=== PATIENT | female | born 1985 | race Caucasian/White ===

== ENCOUNTER 2018-11-30 02:43 | Inpatient (IN) | payer BC ==
--- NOTE | 2018-11-30 03:28 | ED ---
Psychiatric Complaint - HPI Summary HPI Summary: This patient is a 33 year old female brought in by ambulance to [facility] with a chief complaint of MHE and overdose since yesterday. Patient is a transfer from [place], from which she overdosed on Lyrica last night in a suicide attempt. Patient is currently in a lot of stress due to losing her kids by Child Protective Services and getting in an argument with her significant other. Patient was transferred to [facility] for a MHU hold and eventual MHE. Patient is stuporous, but responds to tactile stimuli. HPI Limited due to Level 5 Caveat - History Of Current Complaint Hx Obtained From: EMS, Medical Records Hx From Patient Unobtainable Due To: Altered Mental Status Onset/Duration: Lasting Days, Still Present Timing: Constant Severity Currently: Moderate Character: Stuporous Aggravating Factor(s): Nothing Alleviating Factor(s): Nothing Related History: Positive For: Prior Psychiatric Issues Has Suicidal: Reports: Thoughts, Demonstrates Gesture - Allergies/Home Medications Allergies/Adverse Reactions: Allergies Allergy/AdvReac Type Severity Reaction Status Date / Time nitrofurantoin Allergy Hives Verified 11/30/18 03:43 peanut oil Allergy Anaphylatic Verified 11/30/18 03:42 Shock Home Medications: Home Medications Albuterol HFA INHALER* [Ventolin HFA Inhaler*] 2 puff INH Q6H PRN 11/30/18 [ History Confirmed 11/30/18] NIFEdipine [Nifedipine ER] 30 mg PO DAILY 11/30/18 [History Confirmed 11/30/18] Pantoprazole Sodium 40 mg PO DAILY 11/30/18 [History Confirmed 11/30/18] Pregabalin [Lyrica] 200 mg PO BID 11/30/18 [History Confirmed 11/30/18] Sertraline HCl [Zoloft] 50 mg PO DAILY 11/30/18 [History Confirmed 11/30/18] PMH/Surg Hx/FS Hx/Imm Hx Previously Healthy: Yes - PMHx limited due to Level 5 Caveat Opthamlomology History: Denies: Hx Legally Blind EENT History: Denies: Hx Deafness - Family History Known Family History: Negative: Hypertension Review of Systems Negative: Fever Positive: Depressed, Other - SI All Other Systems Reviewed And Are Negative: No - Comments Additional Review of Systems Comments: ROS Limited due to Level 5 Caveat Physical Exam - Summary Physical Exam Summary: Appearance: Appears intoxicated, stuporous Skin: Warm, dry, no obvious rash Eyes: sclera anicteric, no conjunctival pallor ENT: mucous membranes moist Neck: deferred Respiratory: No signs of respiratory distress Cardiovascular: Appears well perfused, pulses are nml Abdomen: deferred Musculoskeletal: Moving all 4 extremities without obvious discomfort Triage Information Reviewed: Yes Vital Signs Reviewed: Yes Completion Of Physical Exam Limited Due To: Altered Mental Status, Level 5 Course/Dx - Course Course Of Treatment: This patient is a 33 year old female brought in by ambulance to [facility] with a chief complaint of MHE and overdose since yesterday. Patient is a transfer from [place], from which she overdosed on Lyrica last night in a suicide attempt. Patient is currently in a lot of stress due to losing her kids by Child Protective Services and getting in an argument with her significant other. Patient was transferred to [facility] for a MHU hold and eventual MHE. Patient is stuporous, but responds to tactile stimuli. Patient will be signed out to Dr. Villareal at the end of shift, pending MHE. - Differential Dx/Clinical Impression Provider Diagnosis: Suicide attempt, Alcohol intoxication Discharge - Sign-Out/Discharge Documenting (check all that apply): Sign-Out Patient Signing out patient TO: Dana Villareal Patient Received Moderate/Deep Sedation with Procedure: No - Discharge Plan Condition: Stable Referrals: David Garza, [facility] [facility] [Primary Care Provider] - - Billing Disposition and Condition Condition: STABLE - Attestation Statements Document Initiated by Scribe: Yes Documenting Scribe: Ciaran Nation Provider For Whom Anna is Documenting (Include Credential): Marcos Hernandez MD Scribmiguel Attestation: Ciaran Boggs, screveliaed for Marcos Hernandez MD on 11/30/18 at 0635. Scribe Documentation Reviewed: Yes Provider Attestation: The documentation as recorded by the Ciaran devine accurately reflects the service I personally performed and the decisions made by , Marcos Hernandez MD Status of Scribe Document: Viewed
--- NOTE | 2018-11-30 07:28 | ED ---
Progress - Progress Note Progress Note: Receiving sign-out from Dr. Hernandez at shift change 0700 pending MHE at 0700 . This patient is a 33 year old female with a chief complaint of drug overdose, brought in [facility]. She overdosed on Lyrica. She will be diagnosed with depression and will be admitted, per Dr. Valverde, psychiatrist community relations advisor. She will have 15 minute checks once she is on [facility] as it is a locked unit and a safe room. 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 Patient denies chest pain and SOB. Patient complains of nasal congestion and fevers. Vital signs are BP 107/47 and Pulse 87 BPM. Pt is also on Zoloft (she states 50mg x2) med rec shows 50mg qd, also Nifedipine ER 30mg daily for Raynaud's syndrome. She normally takes Lyrica 200mg bid for generalized pain. Pt will be given saline nasal spray for her sinus sxs, and her zoloft and her Nifedipine ER while in the ED. Fam hx: Ira's disease in her mother Albuterol HFA INHALER* [Ventolin HFA Inhaler*] 2 puff INH Q6H PRN 11/30/18 [ History Confirmed 11/30/18] NIFEdipine [Nifedipine ER] 30 mg PO DAILY 11/30/18 [History Confirmed 11/30/18] Pantoprazole Sodium 40 mg PO DAILY 11/30/18 [History Confirmed 11/30/18] Pregabalin [Lyrica] 200 mg PO BID 11/30/18 [History Confirmed 11/30/18] Sertraline HCl [Zoloft] 100 mg PO DAILY 11/30/18 [History Confirmed 11/30/18] Physical Exam Appearance: well-appearing, moderate pain distress, well-nourished, nasal congestion Skin: Warm, color reflects adequate perfusion, dry Head: Normal Head/Face inspection, atraumatic Eyes: Conjunctiva clear ENT: Normal inspection Neck: Supple, no nodes, no JVD Respiratory: Lungs clear, normal breath sounds, no respiratory distress Cardio: RRR, No murmur, pulses normal, brisk capillary refill Abdomen: Soft, nontender Bowel sounds: Present Musculoskeletal: Strength Intact/ROM intact, no calf tenderness, no edema. Psychological: calm, cooperative, flat affect Neuro: Alert, muscle tone normal, no focal deficit, no tremors or choreiform movements. Course/Dx - Course Course Of Treatment: Receiving sign-out from Dr. Hernandez at shift change 0700 pending MHE 11/30/18. This patient is a 33 year old female with a chief complaint of drug overdose. She overdosed on Lyrica. She will be diagnosed with depression and will be admitted, involuntary, per Dr. Valverde. Patient was administered 30 mg PO Nifedipine ER, 50 mg PO Zoloft, 2 drops both nares NaCl. Pt remained calm and cooperative while in the ED. - Diagnoses Provider Diagnoses: Suicide attempt, Alcohol intoxication, Medication overdose - Provider Notifications Discussed Care Of Patient With: Aurora Valverde - royce Arce, RN 0730 Instructed by Provider To: Admit As Inpatient Discharge - Sign-Out/Discharge Documenting (check all that apply): Patient Departure - Admission, Receiving Sign-Out Receiving patient FROM: Marcos Hernandez - 0700 11/30/18 Patient Received Moderate/Deep Sedation with Procedure: No - Discharge Plan Condition: Stable Disposition: ADMITTED TO [facility] - Billing Disposition and Condition Condition: STABLE Disposition: Admitted to [facility] - Attestation Statements Document Initiated by Anna: Yes Documenting Scribe: Luis Burnham Provider For Whom Anna is Documenting (Include Credential): Dana Villareal MD Scribe Attestation: Luis Boggs scribed for Dana Villareal MD on 11/30/18 at 1129. Scribe Documentation Reviewed: Yes Provider Attestation: The documentation as recorded by the Luis devien accurately reflects the service I personally performed and the decisions made by , Dana Villareal MD Status of Scribe Document: Viewed
[2018-11-30] MEDS ORDERED: NIFEdipine ER TAB* 30 MG PO ONE (08:06)
[2018-11-30] MEDS ORDERED: Saline NASAL DROPS 0.65%* 1 DROP BTL BOTH NARES ONE (08:07)
[2018-11-30] MEDS ORDERED: Sertraline* 50 MG TAB PO ONE (08:09)
[2018-11-30] MEDS ORDERED: Al Hydrox/Mg Hydrox/Simet LIQ* 30 ML UDC PO PRN (12:24)
[2018-11-30] MEDS ORDERED: Calcium Carbonate CHEW TAB* 500 MG (TUMS) PO PRN (14:06)
[2018-11-30] MEDS ORDERED: Nicotine GUM* (FRUIT FLAVOR) 2 MG GUM PO PRN (14:07)
--- NOTE | 2018-11-30 16:13 | HP ---
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 Emergency Room via ambulance from [facility] following an intentional overdose on her prescription medications. CHIEF COMPLAINT: "People around me are going to be better off without me." HISTORY OF PRESENT ILLNESS: Fazal with no prior history of psychiatric illness , has been going through overwhelming psychological situation related to involvement with the CPS. Approximately a month ago, her 9-year-old son reported that he was held down and beaten up by his mother. That 9-year-old son happens to be an autistic child. The child's counselor reported her to the CPS and CPS got involved yesterday. CPS showed up in her house and took away her children because Fazal once again relapsed on her alcohol and then on top of it, they found the reporting was credible. Fazal could not take the loss of her children and she became severely depressed, overwhelmed and wanted to kill herself. She took the overdose, drank few beers and then told her what did she do. She was taken to the [place] [facility] and from there she was transferred here for further evaluation and treatment. On today's evaluation, she denies any ongoing symptoms reminiscent of depression for more than couple of days. Obviously, she feels sad, overwhelmed, cries, but denies any other symptoms of depression. At this time, she denies any suicidal ideation and reports that she is happy that she did not end up dying. She also understands that she has problems especially drinking problem and has been struggling with her alcoholism since her late teenage years. 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 She has a very supportive . PAST PSYCHIATRIC HISTORY: Unremarkable. SUBSTANCE USE HISTORY: Fazal started drinking when she was 17 years old. Her drinking got worse in her early 20s. She could not give any amount that she was drinking at the [place]; however, she got involved many times in DUI, DWI and going to [facility]. She went through multiple outpatient and inpatient drug and alcohol rehabs with failures, but she maintained sobriety for approximately 7 years before she relapsed this time. 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 She also has Raynaud disease and peptic ulcer disease. ALLERGIES: She is allergic to MACRODANTIN, which causes a severe GI bleed. FAMILY PSYCHIATRIC HISTORY: Fazal is one of 10 full and half-siblings from her mother's side and the father's side. She reports 1 sister who has bipolar disorder. Majority of them has history of alcohol or drug use. Her biological father was an alcoholic. PERSONAL AND SOCIAL HISTORY: For some unknown reason, Fazal was mostly raised by her grandparents, who are now . Her mother was not a good computer network support specialist , which led Fazal to go to work when she was only 14 years old. 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 She has been unemployed for last 1 year only. Fazal has been for more than 10 years now. She has 3 children from this union. She reports that her is very supportive. PHYSICAL EXAMINATION GENERAL: Fazal is a tall, healthy-looking female, who is appropriately dressed and neatly groomed. She does not appear to be in any physical distress at this time. VITAL SIGNS: Her vitals are within normal limits. HEENT: Head: Atraumatic, normocephalic with full hair. Eyes: PERRLA. EOMI x2. Oral cavity: Within normal limits. NECK: Supple. Midline trachea. No adenopathy or thyromegaly. CHEST: Equal air entry bilaterally. No wheezing or crackles. CVS: S1 and S2. No murmurs. No gallops. Heart rate regular. ABDOMEN: Flat and soft. No organomegaly. No tenderness. Bowel sounds positive in all quadrants. MUSCULOSKELETAL: Within normal limits. Full range of movements of joints. Positive pulses in all extremities. NEUROLOGICAL: Cranial nerves II through XII grossly intact. No evidence of sensory deficit. No abnormal movements at the time of examination. Her gait is mostly stable, but she reports that sometimes she feels unsteady. MENTAL STATUS EXAMINATION: Neatly dressed and groomed, tall female, who is alert and oriented to time, place, and person. She makes good eye contact. Speech is normal in all spheres. Describes her mood as sad. Observed affect is dysphoric with tearfulness. There was no evidence of any thought, perceptual or psychomotor disturbances. Her intelligence appears to be average as evidenced by her vocabulary and fund of knowledge. Memory functions are intact in all spheres. Insight and judgment appear to be intact. SUMMARY: This 33-year-old female who has Neely disease and long history of alcohol dependence, who attempted suicide by overdosing on her prescription medications and alcohol. This is her first lifetime psychiatric hospitalization and she does not have any outpatient services in the community either. DIAGNOSTIC IMPRESSION: MENTAL HEALTH DIAGNOSES: 1. Acute stress disorder with depressed mood. 2. Alcohol use disorder. PHYSICAL HEALTH DIAGNOSES: 1. Neely disease. 2. Peptic ulcer disease. TREATMENT RECOMMENDATIONS: Fazal will need a very brief psychiatric hospitalization for her safety and resolution to her psychosocial stressors. Her code status will remain full. While on the unit, supportive milieu, individual, and group therapy will be initiated. I do not see any reason for starting her on any medication at this time and we will defer that decision to her assigned psychiatrist. Otherwise, we will continue her on her outpatient medical medications. [id number]/[facility] #: [id number] AGUEDA
[2018-11-30] MEDS: Nicotine PATCH 21 MG/24 HR* PATCH TRANSDERM SCH (16:44)
[2018-11-30] MEDS: Pantoprazole TAB * 40 MG TAB PO SCH (16:44)
[2018-11-30] MEDS: Acetaminophen TAB* 325 MG PO PRN (20:24)
[2018-12-01] MEDS: Pantoprazole TAB * 40 MG TAB PO SCH (09:13)
[2018-12-01] MEDS: Nicotine PATCH 21 MG/24 HR* PATCH TRANSDERM SCH (09:13)
[2018-12-01] MEDS: Vitamin THERAPEUTIC TAB PO SCH (09:13)
[2018-12-01] MEDS: Sertraline* 100 MG TAB PO SCH (15:56)
[2018-12-01] MEDS: Acetaminophen TAB* 325 MG PO PRN (15:56)
[2018-12-01] MEDS: NIFEdipine ER TAB* 30 MG PO SCH (18:09)
[2018-12-02 06:44] LABS: ABS Eosinophils 0.2 10^3/ul (0-0.6); ABS Lymphocytes 1.6 10^3/ul (1.0-4.8); ABS Monocytes 1.2 10^3/ul (0-0.8); ABS Neutrophils 6.6 10^3/ul (1.5-7.7); Eosinophil % 2.3 %; Hematocrit 39 % (35-47); Hemoglobin 13.2 g/dL (12.0-16.0); Lymphocyte % 16.7 %; Mean Corpuscular HGB Conc 34 g/dL (31-36); Mean Corpuscular Hemoglobin 31 pg (27-31); Mean Corpuscular Volume 93 fL (80-97); Mean Platelet Volume 8.7 fL (7.4-10.4); Platelet Count 296 10^3/uL (150-450); Red Blood Count 4.25 10^6 /uL (3.70-4.87); Red Cell Distribution Width 13 % (10.5-15); White Blood Count 9.6 10^3/uL (3.5-10.8)
[2018-12-02 07:05] LABS: ALT 15 U/L (7-52); AST 19 U/L (13-39); Albumin 3.9 g/dL (3.2-5.2); Albumin/Globulin Ratio 1.5 (1-3); Alkaline Phosphatase 40 U/L (34-104); Anion Gap 6 mmol/L (2-11); BUN/Creatinine Ratio 8.5 (8-20); Blood Urea Nitrogen 6 mg/dL (6-24); CO2 Carbon Dioxide 25 mmol/L (22-32); Calcium 8.9 mg/dL (8.6-10.3); Chloride 109 mmol/L (101-111); Cholesterol 156 mg/dL; EGFR African American 116.2 (>60); Globulin 2.6 g/dL (2-4); Glucose 89 mg/dL (70-100); HDL Cholesterol 56.7 mg/dL; LDL Cholesterol 83 mg/dL; Potassium 3.7 mmol/L (3.5-5.0); Sodium 140 mmol/L (135-145); Total Protein 6.5 g/dL (6.4-8.9); Triglycerides 83 mg/dL
[2018-12-02 07:19] LABS: TSH (Thyroid Stimulating Horm) 1.05 mcIU/mL (0.34-5.60)
[2018-12-02] MEDS: NIFEdipine ER TAB* 30 MG PO SCH (08:32)
[2018-12-02] MEDS: Pantoprazole TAB * 40 MG TAB PO SCH (08:32)
[2018-12-02] MEDS: Sertraline* 100 MG TAB PO SCH (08:32)
[2018-12-02] MEDS: Nicotine PATCH 21 MG/24 HR* PATCH TRANSDERM SCH (08:34)
[2018-12-02] MEDS: Vitamin THERAPEUTIC TAB PO SCH (08:36)
--- NOTE | 2018-12-02 10:01 | PN ---
Subjective - Subjective Date of Service: 12/02/18 Service Type: 55678 Hosp care 25 min moderate complexity Subjective: Patient reports much frustration with CPS and minimizes any neglect or abuse of her children. She minimizes recent alcohol use and states that she has been going to [facility] since the week after . She states she has an upcoming appt this sunday. She reports desire to be connected to outpatient therapy and psychiatry. She agrees to oral naltrexone to assess for use of Vivitrol. Will trial gabapentin for anxiety, insomnia and alcohol cravings. She reports R ear pain. external ear exam reveals no abnormalities. external ear canals patent, bilat; erythema noted in R ear. TM intact, bilat. Objective - General Observations Appearance: Well Groomed Stature: Thin Posture: WNL Eye Contact: Avoidant, Intermittent Behavior/Activity: WNL - Interaction Observations Attitude Towards Examiner: Cooperative, Anxious Stated Mood: Dysphoric, Irritable Affect: Flat Speech Pattern/Tone: Clear, Appropriate, Normal Volume Thought Process: Circumstantial Perception: WNL Thought Content: WNL Hallucination Type: None Delusion Type: None - Cognitive Function Orientation: A&O x 4 Level of Consciousness: Alert Cognition: WNL Insight: Mostly Blames Others for Problems Judgment Within Normal Limits: No Ability to Make Reasonable Decisions: Moderately Impaired - Medication Compliance Cooperative with Inpatient Medication Regimen: Yes - Group Participation Participates in Group Activities: Yes Assessment - Assessment Merits Inpatient Hospitalization: For Immediate Safety, For Stabilization Inpatient DSM-V Dx: F33.2 Clinical Impression: 33yo wf with hx of Loving dz, Reynaud's dz, and alcohol dependence who presented to ED after suicide attempt via overdosing on prescribed Lyrica and alcohol. CPS has been involved with the family and removed the children due to patient's alcohol use. She exhibits impaired insight into the above. She merits hospitalization for immediate safety and stabilization. Plan - Plan Treatment Plan: Name: BETTYE BERNAL Birthdate: 1985 [id number] continue acute intensive psychiatric treatment. may decrease to q30min and allow staff pass/computer use. start naltrexone PO for alcohol use d/o; start gabapentin 300mg TID prn pain/ anxiety/insomnia. discharge planning to include family, mental health and substance use outpatient referrals Continued Medication Management: Start Medication Medications: Current Medications Acetaminophen (Tylenol Tab*) 650 mg PO Q4H PRN PRN Reason: PAIN or TEMP > 101 F Last Admin: 12/01/18 15:56 Dose: 650 mg Al Hydrox/Mg Hydrox/Simethicone (Maalox Plus*) 30 ml PO Q4H PRN PRN Reason: INDIGESTION Calcium Carbonate (Tums*) 500 mg PO TID PRN PRN Reason: INDIGESTION Multivitamins (Theragran Tab*) 1 tab PO DAILY [facility] Last Admin: 12/02/18 08:36 Dose: Not Given Nicotine (Nicotine Patch 21 Mg/24 Hr*) 1 patch TRANSDERM DAILY [facility] Last Admin: 12/02/18 08:34 Dose: 1 patch Nicotine Polacrilex (Nicotine Gum*) 2 mg PO Q2H PRN PRN Reason: NICOTINE CRAVINGS Nifedipine (Procardia Xl Tab*) 30 mg PO DAILY [facility] Last Admin: 12/02/18 08:32 Dose: 30 mg Pantoprazole Sodium (Protonix Tab*) 40 mg PO DAILY [facility] Last Admin: 12/02/18 08:32 Dose: 40 mg Sertraline HCl (Zoloft*) 100 mg PO DAILY [facility] Last Admin: 12/02/18 08:32 Dose: 100 mg - Discharge Plan Discharge Plan: Inpatient Hospitalization
[2018-12-02 13:33] LABS: HCG Pregnancy < 0.60 mIU/mL
[2018-12-02] MEDS ORDERED: Acetic Acid 0.25%* 250 ML BTL TOPICAL SCH (14:00)
[2018-12-02] MEDS: Naltrexone TAB* 50 MG TAB PO SCH (14:10)
[2018-12-02 17:16] LABS: Urine Appearance Clear; Urine Bilirubin Negative (Negative); Urine Blood Negative (Negative); Urine Color Yellow; Urine Glucose Negative (Negative); Urine Ketones Trace (Negative); Urine Nitrite Negative (Negative); Urine Protein Negative (Negative); Urine Specific Gravity 1.013 (1.010-1.030); Urine Urobilinogen Negative (Negative)
[2018-12-02 17:58] LABS: Urine Benzodiazepine Screen None Detected (None Detect); Urine Opiates Screen None Detected (None Detect)
[2018-12-02] MEDS: Gabapentin CAP(*) 300 MG PO PRN (20:26)
[2018-12-02] MEDS: Acetaminophen TAB* 325 MG PO PRN (20:27)
[2018-12-03] MEDS: Pantoprazole TAB * 40 MG TAB PO SCH (07:53)
[2018-12-03] MEDS: NIFEdipine ER TAB* 30 MG PO SCH (07:53)
[2018-12-03] MEDS: Gabapentin CAP(*) 300 MG PO PRN ×2 (07:53→20:56)
[2018-12-03] MEDS: Sertraline* 100 MG TAB PO SCH (07:53)
[2018-12-03] MEDS: Naltrexone TAB* 50 MG TAB PO SCH (07:53)
[2018-12-03] MEDS: Vitamin THERAPEUTIC TAB PO SCH (07:54)
[2018-12-03] MEDS: Nicotine PATCH 21 MG/24 HR* PATCH TRANSDERM SCH (07:56)
[2018-12-03] MEDS ORDERED: Saline NASAL SPRAY 0.65%* BTL BOTH NARES PRN (12:11)
--- NOTE | 2018-12-03 12:19 | PN ---
Subjective - Subjective Date of Service: 12/03/18 Service Type: 65147 Hosp care 15 min low complexity Subjective: Patient reports feelings of isolation and poor support network. She exhibits defense mechanisms of externalizing blame in regards to relationship with and CPS involvement. Patient identifies lack of "dealing with" history of trauma and losses. She is receptive to suggestions of completing GERDA packet and considering substance use inpatient treatment. She reports a desire "to do anything" in regards to custody of children. She endorses poor sleep and "memories" but denies nightmares or flashbacks. She declines offer of prazosin. Objective - General Observations Appearance: Well Groomed Stature: Thin Posture: WNL Eye Contact: Intermittent Behavior/Activity: WNL - Interaction Observations Attitude Towards Examiner: Cooperative, Defensive Stated Mood: Dysphoric Affect: Flat Speech Pattern/Tone: Clear, Quiet Volume Thought Process: Circumstantial Perception: WNL Thought Content: Depressive Hallucination Type: None, Denies Delusion Type: None, Denies - Cognitive Function Orientation: A&O x 4 Level of Consciousness: Alert Cognition: WNL Estimated Intelligence: Normal Insight: Mostly Blames Others for Problems Judgment Within Normal Limits: No Ability to Make Reasonable Decisions: Serverely Impaired - Medication Compliance Cooperative with Inpatient Medication Regimen: Yes - Group Participation Participates in Group Activities: Yes Assessment - Assessment Merits Inpatient Hospitalization: For Immediate Safety, For Stabilization, For Discharge Planning, Pending Safe DC Plan Inpatient DSM-V Dx: F33.2 Clinical Impression: 33yo wf with hx of Yell dz, Reynaud's dz, and alcohol dependence who presented to ED after suicide attempt via overdosing on prescribed Lyrica and alcohol. CPS has been involved with the family and removed the children due to patient's alcohol use. She exhibits impaired insight into the above. She merits hospitalization for immediate safety and stabilization. Plan - Plan Treatment Plan: Name: BETTYE BERNAL Birthdate: 1985 [id number] continue acute intensive psychiatric treatment. may decrease to q30min and allow staff pass/computer use. continue current medications. discharge planning to include family, mental health and substance use outpatient referrals Medications: Current Medications Acetaminophen (Tylenol Tab*) 650 mg PO Q4H PRN PRN Reason: PAIN or TEMP > 101 F Last Admin: 12/02/18 20:27 Dose: 650 mg Al Hydrox/Mg Hydrox/Simethicone (Maalox Plus*) 30 ml PO Q4H PRN PRN Reason: INDIGESTION Calcium Carbonate (Tums*) 500 mg PO TID PRN PRN Reason: INDIGESTION Gabapentin (Neurontin Cap(*)) 300 mg PO TID PRN PRN Reason: anxiety/pain/insomnia Last Admin: 12/03/18 07:53 Dose: 300 mg Multivitamins (Theragran Tab*) 1 tab PO DAILY [facility] Last Admin: 12/03/18 07:54 Dose: Not Given Naltrexone HCl (Naltrexone Tab*) 50 mg PO DAILY [facility]; Protocol Last Admin: 12/03/18 07:53 Dose: 50 mg Nicotine (Nicotine Patch 21 Mg/24 Hr*) 1 patch TRANSDERM DAILY [facility] Last Admin: 12/03/18 07:56 Dose: 1 patch Nicotine Polacrilex (Nicotine Gum*) 2 mg PO Q2H PRN PRN Reason: NICOTINE CRAVINGS Last Admin: 12/02/18 14:18 Dose: 2 mg Nifedipine (Procardia Xl Tab*) 30 mg PO DAILY [facility] Last Admin: 12/03/18 07:53 Dose: 30 mg Pantoprazole Sodium (Protonix Tab*) 40 mg PO DAILY [facility] Last Admin: 12/03/18 07:53 Dose: 40 mg Sertraline HCl (Zoloft*) 100 mg PO DAILY [facility] Last Admin: 12/03/18 07:53 Dose: 100 mg Sodium Chloride (Sodium Chloride 0.65% Nasal [place]*) 1 spray BOTH NARES Q4H PRN PRN Reason: CONGESTION - Discharge Plan Discharge Plan: Inpatient Hospitalization
[2018-12-03] MEDS: Acetaminophen TAB* 325 MG PO PRN (20:56)
[2018-12-04 08:54] VITALS: BP 105/63
[2018-12-04] MEDS: Nicotine PATCH 21 MG/24 HR* PATCH TRANSDERM SCH (08:54)
[2018-12-04] MEDS: Pantoprazole TAB * 40 MG TAB PO SCH (08:55)
[2018-12-04] MEDS: Naltrexone TAB* 50 MG TAB PO SCH (08:55)
[2018-12-04] MEDS: NIFEdipine ER TAB* 30 MG PO SCH (08:55)
[2018-12-04] MEDS: Sertraline* 100 MG TAB PO SCH (08:55)
[2018-12-04] MEDS: Acetaminophen TAB* 325 MG PO PRN (08:57)
[2018-12-04] MEDS: Vitamin THERAPEUTIC TAB PO SCH (09:00)
[2018-12-04] MEDS ORDERED: Naltrexone INJ 380 MG IM ONE (11:13)
--- NOTE | 2018-12-04 11:21 | DCNOTE ---
Subjective - Subjective Service Types: [id number] Hosp DC Day Mgmt simple under 30 min Discharge Date: 12/04/18 Subjective: Patient reports desire to be discharged and follow up with scheduled appt today at [facility]. She denies SI or passive wish. She is future-oriented and expresses desire to work with CPS. She continues to decline offer of referral for inpatient substance use treatment. She received first monthly injection of naltrexone IM 380mg today. Objective - General Observations Appearance: Well Groomed Stature: Thin Posture: WNL Eye Contact: Average Behavior/Activity: WNL - Interaction Observations Attitude Towards Examiner: Cooperative Stated Mood: Euthymic Affect: Full Speech Pattern/Tone: Clear, Appropriate, Normal Volume Thought Process: Coherent, Goal Directed Perception: WNL Thought Content: WNL Hallucination Type: None Delusion Type: None - Cognitive Function Orientation: A&O x 4 Level of Consciousness: Alert Cognition: WNL Estimated Intelligence: Normal Insight: Mostly Blames Others for Problems Judgment Within Normal Limits: Yes - Medication Compliance Cooperative with Inpatient Medication Regimen: Yes - Group Participation Participates in Group Activities: Yes DC Assessment - Assessment Clinical Impression: 33yo wf with hx of [place] dz, Reynaud's dz, and alcohol dependence who presented to ED after suicide attempt via overdosing on prescribed Lyrica and alcohol. CPS has been involved with the family and removed the children due to patient's alcohol use. She has successfully detoxed and denies suicidal ideation or passive wish. She has been stabilized and no longer meets requirement for psychiatric hospitalization. Clear for Discharge: Adequate Clinical Respons, Acceptable Safety Profile Inpatient DSM-V Dx: F33.2 Discharge Planning - Discharge Planning Discharge Plan: Outpatient Follow Up Outpatient Program: [facility] Recommendations for Continuing Care: Medication Management, Psychotherapy, Substance Abuse Counseling, Primary Care Followup Medications: Current Medications Calcium Carbonate (Tums*) 500 mg PO TID PRN PRN Reason: INDIGESTION Gabapentin (Neurontin Cap(*)) 300 mg PO TID PRN PRN Reason: anxiety/pain/insomnia Last Admin: 12/03/18 20:56 Dose: 300 mg Naltrexone HCl (Vivitrol Inj) 380 mg IM ONCE ONE Stop: 12/04/18 11:14 Nifedipine (Procardia Xl Tab*) 30 mg PO DAILY [facility] Last Admin: 12/04/18 08:55 Dose: 30 mg Pantoprazole Sodium (Protonix Tab*) 40 mg PO DAILY [facility] Last Admin: 12/04/18 08:55 Dose: 40 mg Sertraline HCl (Zoloft*) 100 mg PO DAILY [facility] Last Admin: 12/04/18 08:55 Dose: 100 mg Sodium Chloride (Sodium Chloride 0.65% Nasal [place]*) 1 spray BOTH NARES Q4H PRN PRN Reason: CONGESTION Last Admin: 12/04/18 08:56 Dose: 1 spray Discharge Planning: Prescriptions provided for discharge [x] Yes [] No Follow up care details as per social work arrangements: NILO- encouraged to discuss inpatient programming Jesus Hawkins MH - intake 12/05/18 primary care- David Garza NP Patient response to discharge plan: [x] eager for discharge [x] agreeable with discharge plan [] ambivalent about discharge [] disagrees with discharge today
[2018-12-04] MEDS: Gabapentin CAP(*) 300 MG PO PRN (12:01)
== END 2018-12-04 12:30 | disposition home or self-care (01) | DRG 751 ==
LOC: ED 02:43 → BSU 09:19
PROVIDERS: ADMIT Psychiatry & Neurology Psychiatry; ATTEND Psychiatry & Neurology Psychiatry
DX: F33.2 Major depressive disorder, recurrent severe without psychotic features (principal); G10 Huntington's disease; T42.6X2A Poisoning by other antiepileptic and sedative-hypnotic drugs, intentional self-harm, initial encounter; F10.20 Alcohol dependence, uncomplicated; I73.00 Raynaud's syndrome without gangrene; K27.9 Peptic ulcer, site unspecified, unspecified as acute or chronic, without hemorrhage or perforation; Y92.9 Unspecified place or not applicable; Z88.8 Allergy status to other drugs, medicaments and biological substances; Z81.8 Family history of other mental and behavioral disorders; Z81.1 Family history of alcohol abuse and dependence; Z81.3 Family history of other psychoactive substance abuse and dependence
CPT/HCPCS: 36415; 80053; 80061; 80307; 81003; 83036; 84443; 84702; 85025; 99222; 99231; 99232; 99238; 99285; A9270-GY

== ENCOUNTER 2019-07-05 13:06 | Emergency (ER) | payer BC ==
--- NOTE | 2019-07-05 15:12 | ED ---
Lower Extremity - HPI Summary HPI Summary: Patient is a 33-year-old female who presents emergency department for right foot injury that occurred 3 days ago. Patient states her large dog stepped on her right foot and since she isn't having pain and swelling. Difficulty walking secondary to pain. Symptoms are mild in severity. Walking makes symptoms worse. Rest makes symptoms better. - History of Current Complaint Chief Complaint: EDExtremityLower Stated Complaint: RT FOOT INJURY PER PT Time Seen by Provider: 07/05/19 14:48 Hx Obtained From: Patient Pain Intensity: 8 - Allergies/Home Medications Allergies/Adverse Reactions: Allergies Allergy/AdvReac Type Severity Reaction Status Date / Time lactose Allergy GI Upset Verified 07/05/19 13:13 meloxicam Allergy Bleeding Verified 07/05/19 13:13 nitrofurantoin Allergy Hives Verified 11/30/18 03:43 peanut oil Allergy Anaphylatic Verified 11/30/18 03:42 Shock Home Medications: Home Medications Naltrexone TAB* 50 mg PO DAILY 07/05/19 [History Confirmed 07/05/19] PMH/Surg Hx/FS Hx/Imm Hx Previously Healthy: Yes Respiratory History: Reports: Hx Asthma GI History: Reports: Hx Gastroesophageal Reflux Disease, Hx Hiatal Hernia Musculoskeletal History: Reports: Hx Arthritis Sensory History: Reports: Hx Contacts or Glasses, Hx Deafness Denies: Hx Legally Blind, Hx Hearing Aid Opthamlomology History: Reports: Hx Contacts or Glasses Denies: Hx Legally Blind Neurological History: Reports: Hx Migraine, Hx Seizures, Other Neuro Impairments /Disorders - [place] Psychiatric History: Reports: Hx Bipolar Disorder Denies: Hx of Violent Episodes Against Others - Surgical History Surgery Procedure, Year, and Place: sholder reconstruction, rt knee meniscus and acl repair, tonsil removal, Infectious Disease History: No Infectious Disease History: Denies: Traveled Outside the [place] in Last 30 Days - Family History Known Family History: Positive: Non-Contributory Negative: Hypertension - Social History Occupation: Employed Full-time Lives: With Family Alcohol Use: None Substance Use Type: Reports: None Smoking Status (MU): Light Every Day Tobacco Smoker Review of Systems Positive: Other - right foot injury Skin: Negative Neurological: Negative Negative: Weakness, Paresthesia, Numbness All Other Systems Reviewed And Are Negative: Yes Physical Exam Triage Information Reviewed: Yes Vital Signs On Initial Exam: Initial Vitals Temp Pulse Resp BP Pulse Ox 98.7 F 76 16 120/57 99 07/05/19 13:10 07/05/19 13:10 07/05/19 13:10 07/05/19 13:10 07/05/19 13:10 Vital Signs Reviewed: Yes Appearance: Positive: Well-Appearing - Patient lying in bed in no acute distress. Family present. Skin: Positive: Warm, Dry Head/Face: Positive: Normal Head/Face Inspection Eyes: Positive: Normal, EOMI Neck: Positive: Supple Musculoskeletal: Positive: Other - Mild edema noted along the lateral aspect of right foot with diffuse tenderness on palpation. No breaks in the skin. Neurological: Positive: Normal, CN Intact II-III Psychiatric: Positive: Affect/Mood Appropriate Procedures - Sedation Patient Received Moderate/Deep Sedation with Procedure: No Are You The Provider Who Administered The Sedation: Sickles Corner of Provider Whom Sedated Patient: Marcos Carrasquillo - Splinting Right Lower Extremity Pre-Made Type: post op shoe Pre-Proc Neuro Vasc Exam: normal Post-Proc Neuro Vasc Exam: normal Diagnostics - Vital Signs Vital Signs Temp Pulse Resp BP Pulse Ox 07/05/19 13:10 98.7 F 76 16 120/57 99 - Laboratory Lab Statement: Any lab studies that have been ordered have been reviewed, and results considered in the medical decision making process. Lower Extremity Course/Dx - Course Course Of Treatment: Patient with isolated right foot injury. X-ray negative for acute findings per radiology. Splint provided. Advised patient to ice and elevate intermittently. Follow-up with PCP for a recheck in 1-2 weeks if pain persists for further evaluation. Tylenol or Motrin for pain as directed. Patient understands and agrees with plan. - Diagnoses Differential Diagnosis/HQI/PQRI: Positive: Contusion, Dislocation, Fracture ( Closed), Sprain, Strain Provider Diagnoses: Foot contusion Discharge ED - Sign-Out/Discharge Documenting (check all that apply): Patient Departure - Discharge Plan Condition: Good Disposition: HOME Patient Education Materials: Foot Contusion (ED) Referrals: Nba Leone II, MD [Primary Care Provider] - Michael Lima MD [Medical Doctor] - Additional Instructions: Schedule a follow up appointment with PCP or orthopedics is pain and swelling persist Splint and crutches Ice and elevate intermittently Ibuprofen as directed Return to ER if symptoms change or worsen - Billing Disposition and Condition Condition: GOOD Disposition: Home
[2019-07-05 16:12] VITALS: BP 116/73
== END 2019-07-05 16:07 | disposition home or self-care (01) ==
LOC: ED 13:06
DX: S90.31XA Contusion of right foot, initial encounter (principal); W54.8XXA Other contact with dog, initial encounter; Y92.9 Unspecified place or not applicable; J45.909 Unspecified asthma, uncomplicated; K21.9 Gastro-esophageal reflux disease without esophagitis; F31.9 Bipolar disorder, unspecified; F17.200 Nicotine dependence, unspecified, uncomplicated; Z79.899 Other long term (current) drug therapy; Z88.6 Allergy status to analgesic agent; Z88.1 Allergy status to other antibiotic agents
CPT/HCPCS: 99282

== ENCOUNTER 2019-11-13 18:18 | Observation (INO) | payer BC ==
[2019-11-13] MEDS ORDERED: NS 0.9% 1000 ML** 2,000 ML IV ONE (18:22)
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
[2019-11-13 18:41] LABS: ABS Eosinophils 0.2 10^3/ul (0-0.6); ABS Lymphocytes 1.9 10^3/ul (1.0-4.8); ABS Monocytes 0.5 10^3/ul (0-0.8); ABS Neutrophils 2.6 10^3/ul (1.5-7.7); Eosinophil % 4.4 %; Hematocrit 40 % (35-47); Hemoglobin 13.4 g/dL (12.0-16.0); Lymphocyte % 36.7 %; Mean Corpuscular HGB Conc 34 g/dL (31-36); Mean Corpuscular Hemoglobin 32 pg (27-31); Mean Corpuscular Volume 94 fL (80-97); Mean Platelet Volume 7.9 fL (7.4-10.4); Nucleated Red Blood Cells % 0.1; Platelet Count 266 10^3/uL (150-450); Red Blood Count 4.22 10^6 /uL (3.70-4.87); Red Cell Distribution Width 15 % (10-15); White Blood Count 5.2 10^3/uL (3.5-10.8)
--- OUTSIDE RECORDS SUMMARY | 2019-11-13 19:03 | XMS REPORT ---
:1985 Author Organization [facility] Address [address] [place] [address] Care Team Providers Name Role Phone CarolinaJohnathon polanconcer Unavailable Unavailable PROBLEMS Type Condition ICD9-CM Code [id number] Code Onset Dates Condition Status SNOMED Code Problem Sinusitis 473.9 Active [id number] ALLERGIES No Information ENCOUNTERS Encounter Location Date Diagnosis [facility], [facility] [place], [place] Sep, Dental [address] [facility] [address] Aug, [address] Aug, [place] [address] Feb, [address] Jan, [address] [facility] [address] Oct, [address] [facility] [address] Aug, [address] [facility] [address] May, [address] May, [place] [address] [facility] [address] Jan, [address] [facility] [address] [place], [place] November, [address] November, [address] [facility] [address] [place] [address] Oct, [address] [facility], [facility] [place], [place] Aug, Dental [address] Apr, Dental [address] [facility] [address] [place] [address] Apr, [address] [facility] [address] [place] [address] Mar, [address] [facility] [address] [place] [address] Mar, [address] [facility], [facility] [address], [place] November, Dental [address] [facility], [facility] [address], [place] November, Dental [address] Aug, [place] [address] [facility] [address] [place] [address] Aug, [address] Jul, Dental [address] [facility], [facility] [address] [facility], November, [place] [address] [facility] [address] [place] [address] November, [address] May, [place] [address] May, [place] [address] May, [place] [address] [facility], [facility] [address] [place], [place] Apr, Dental [address] [facility] [facility], [place], [place] [address] [facility], [facility] [address] [facility], Apr, [place] [address] [facility] [address] [place] [address] November, [address] [facility] [address] [place] [address] Oct, [address], Sep, [facility] [address] [facility], [facility] [address] [facility], Sep, [facility] [address] IMMUNIZATIONS No Known Immunizations SOCIAL HISTORY Never Assessed REASON FOR REFERRAL FUNCTIONAL STATUS PLAN OF CARE VITAL SIGNS MEDICATIONS Unknown Medications PROCEDURES No Known procedures RESULTS No Results REASON FOR VISIT Dental No Show #1 Insurance Providers [facility] Member Patient Patient Patient Patient Patient Subscriber Subscriber Subscriber Group Insurance Plan Plan Plan Plan ID Relationship Address Phone Name Date of ID Name Date of No Type Insurance Insurance Insurance Coverage to Subscriber Address Phone Name Dates Medicaid [address] [phone] Medicaid self Fazal [id number] Wrap [facility] [address] [place] [address] [employer] [phone] [employer] [id number] Fazal [id number] BCBS [id number] BCBS [id number]: [place] [address] [place] [facility] [id number] [place] [id number] [id number] [employer] [phone] [employer] self Fazal 1985 [id number] BCBS PPO [id number] BCBS PPO [place] 4 [address] EPO [address] [place] EPO Trad [address] Blue [phone] Blue self Fazal [id number] Choice Opt [id number] Choice Opt [place] CRUZ GG457 [place] [address] GG[address] [place] [address] Medicaid [id number] [phone] Medicaid self Fazal [id number] [facility] [address] [place] [address] Blue [phone] Blue self Fazal 1985 [id number] Choice [place] [id number] Choice Opt [place] 5 Medical [place] Medical [address] [employer] [phone] [employer] [id number] Fazal 1985 [id number] BCBS [id number] BCBS [id number]: [place] 7 Dental [place] [facility] [id number]:- [place] [id number] [address] [id number] MEDICAL (GENERAL) HISTORY Type Description Date Surgical History Skin Grafts 1996 Surgical History Right Knee Surgery 2010 Surgical History Tubal Ligation 2009 Surgical History Deviated Septum Surgical History Right Shoulder Surgery 2014 Surgical History Right Knee Surgery 2016 Surgical History Tonsils Removed 2017
--- OUTSIDE RECORDS SUMMARY | 2019-11-13 19:03 | XMS REPORT | Continuity of Care Document ---
:1985 External Reference #:[id number] Author Name Eladio Rosales MD (transmitted by agent of provider Jeaneth Pérez) Address [address] [place] [address] Care Team Providers Name Role Phone Nba Leone MD - Internal Care Team Information [place] Man Medicine Problems Description No Information Available Social History Type Date Description Comments Sex Unknown ETOH Use Denies alcohol use Tobacco Use Start: Unknown Light tobacco smoker (10 or fewer cigarettes/day) Smoking Status Reviewed: 09/15/19 Light tobacco smoker (10 or fewer cigarettes/day) Exercise Type/Frequency Exercises regularly Allergies, Adverse Reactions, Alerts Active Allergies Reaction Severity Comments Date Macrobid 09/15/2019 Medications Active Medications SIG Qnty Indications Ordering Provider Date Gabapentin take one tablet Unknown 600mg Tablets by mouth bid Protonix 1 by mouth every Unknown 40mg Tablets DR day Zoloft 1 by mouth every Unknown 100mg Tablets day Procardia XL once daily Unknown 30mg Tablets ER 24HR Immunizations Description No Information Available Vital Signs Date Vital Result Comment 09/15/2019 10:52am Height 70 inches 5'10" Weight 155.00 lb Heart Rate 64 /min BP Systolic Sitting 110 mmHg BP Diastolic Sitting 64 mmHg Body Temperature 98.1 F BMI (Body Mass Index) 22.2 kg/m2 Results Description No Information Available Procedures Description No Information Available Medical Devices Description No Information Available Encounters Description No Information Available Assessments Date Code Description Provider 09/15/2019 S63.502A Unspecified sprain of left wrist, initial Eladio Rosales MD encounter Plan of Treatment Future Appointment(s):09/29/2019 10:00 am - Eladio Rosales MD at [facility]/17/2020 - LEVY Tijerina63.502A Unspecified sprain of left wrist, initial encounterNew Xrays:Wrist Left 2 VWS, Ordered: Follow up:Follow up: 2 weeks Functional Status Description No Information Available Mental Status Description No Information Available Referrals Description No Information Available
[2019-11-13 19:09] LABS: ALT 14 U/L (7-52); AST 23 U/L (13-39); Albumin/Globulin Ratio 1.5 (1-3); Alkaline Phosphatase 42 U/L (34-104); Anion Gap 5 mmol/L (2-11); BUN/Creatinine Ratio 12.3 (8-20); Blood Urea Nitrogen 9 mg/dL (6-24); CO2 Carbon Dioxide 29 mmol/L (22-32); Calcium 8.5 mg/dL (8.6-10.3); Chloride 109 mmol/L (101-111); EGFR African American 111.8 (>60); EGFR Non-African American 92.4 (>60); Globulin 2.6 g/dL (2-4); Glucose 96 mg/dL (70-100); Potassium 3.3 mmol/L (3.5-5.0); Sodium 143 mmol/L (135-145); Total Protein 6.6 g/dL (6.4-8.9)
[2019-11-13] MEDS ORDERED: LORazepam INJ* 2 MG/ML 1 ML VIAL ONE (19:11)
[2019-11-13 19:14] LABS: HCG Pregnancy < 0.60 mIU/mL
[2019-11-13 19:16] LABS: Acetaminophen < 15 mcg/mL; Alcohol 358 mg/dL (<10); Salicylate < 2.50 mg/dL (<30)
[2019-11-13] MEDS ORDERED: diPHENhydraMINE IV* 50 MG/ML 1 ml VIAL (BENADRYL) IM ONE (19:25)
[2019-11-13] MEDS ORDERED: Haloperidol INJ IV/IM* 5 MG/ML AMP IM ONE (19:25)
[2019-11-13] MEDS ORDERED: LORazepam INJ* 2 MG/ML 1 ML VIAL IM ONE (19:26)
[2019-11-13] MEDS ORDERED: Lorazepam PYXIS KEY PRN (19:26)
[2019-11-14] MEDS ORDERED: LORazepam INJ* 2 MG/ML 1 ML VIAL IV PUSH ONE ×2 (00:16→02:29)
[2019-11-14] MEDS ORDERED: Lorazepam PYXIS KEY PRN ×2 (00:16→02:29)
--- NOTE | 2019-11-14 02:01 | ED ---
Progress - Progress Note Progress Note: Patient is a sign-out at 02:30 on 11/14/19 from OMAR Cintron to Rena Desir MD at shift change, pending mental health evaluation and disposition. At 06:38, Dr. Mirella Razo reviewed the patients case and will assess the patient. Patient is a sign-out at 07:00 on 11/14/19 from Rena Desir MD to Dewayne Kiser MD at shift change, pending consult and disposition. Course/Dx - Course Course Of Treatment: Patient is a sign-out at 02:30 on 11/14/19 from OMAR Cintron to Rena Desir MD at shift change, pending mental health evaluation and disposition. In the ED course, patient was given Ativan 2 mg IV PUSH. At 06:38, Dr. Mirella Razo reviewed the patients case and will assess the patient. Patient is a sign-out at 07:00 on 11/14/19 from Rena Lazaro MD to Dewayne Kiser MD at shift change, pending consult and disposition. - Diagnoses Provider Diagnoses: Overdose - Provider Notifications Discussed Care Of Patient With: Mirella Razo - At 06:38, Dr. Mirella Razo reviewed the patients case and will assess the patient. Time Discussed With Above Provider: 06:38 - Critical Care Time Critical Care Statement: Critical care time is provided exclusive of any time spent performing procedures. Discharge ED - Sign-Out/Discharge Documenting (check all that apply): Sign-Out Patient, Receiving Sign-Out Signing out patient TO: Dewayne Kiser - Patient is a sign-out at 07:00 on from Rena Desir MD to Dewayne Kiser MD at shift change, pending consult and disposition. Receiving patient FROM: Denzel Baum - Patient is a sign-out at 02:30 on 11/14/19 from OMAR Cintron to Rena Dseir MD at shift change, pending mental health evaluation and disposition. - Discharge Plan Condition: Stable Referrals: Nba Leone II, MD [Primary Care Provider] - - Billing Disposition and Condition Condition: STABLE - Attestation Statements Document Initiated by Scribe: Yes Documenting Scribe: Merly Foster Provider For Whom Scribe is Documenting (Include Credential): Rena Lazaro MD Scribe Attestation: I, Merly Foster, scribed for Rena Desir MD on 11/14/19 at 0649. Scribe Documentation Reviewed: Yes Provider Attestation: The documentation as recorded by the Merly devine accurately reflects the service I personally performed and the decisions made by me, Rena Desir MD Status of Scribe Document: Viewed
--- NOTE | 2019-11-14 07:15 | ED ---
Progress - Progress Note Progress Note: The patient is a sign-out from Dr. Rena Desir MD, to Dr. Dewayne Kiser MD, at change of shift at 0700 on 11/14/2019, pending hospitalist consultation and disposition. Course/Dx - Course Course Of Treatment: Dr. Roman signed out the patient at shift change pending admission. Dr. Shultz admitted the patient to her services. Patient is hemodynamically stable. - Diagnoses Provider Diagnoses: Overdose - Provider Notifications Time Discussed With Above Provider: 06:38 - Critical Care Time Critical Care Statement: Critical care time is provided exclusive of any time spent performing procedures. Discharge ED - Sign-Out/Discharge Documenting (check all that apply): Receiving Sign-Out Receiving patient FROM: Rena Desir - Patient is a sign-out from Dr. Rena Desir MD, at 0700 on 11/14/2019, pending consult and disposition. - Discharge Plan Condition: Stable - Billing Disposition and Condition Condition: STABLE - Attestation Statements Document Initiated by Scribe: Yes Documenting Scribe: Lanny Berman Provider For Whom Macarioibe is Documenting (Include Credential): Dewayne Kiser MD Scribe Attestation: ILanny, scribed for Dewayne Kiser MD on 11/14/19 at 0920. Scribe Documentation Reviewed: Yes Provider Attestation: The documentation as recorded by the scribeLanny accurately reflects the service I personally performed and the decisions made by me, Dewayne Kiser MD Status of Scribe Document: Viewed
[2019-11-14] MEDS ORDERED: Ondansetron INJ* 2 MG/ML VIAL IV PRN (07:29)
[2019-11-14] MEDS ORDERED: NS 0.9% 1000 ML** 1,000 ML IV SCH (07:30)
[2019-11-14] MEDS ORDERED: Thiamine INJ* 100 MG/ML 2 ML VIAL IM ONE (07:37)
[2019-11-14 07:51] LABS: Urine Appearance Cloudy; Urine Bilirubin Negative (Negative); Urine Blood Negative (Negative); Urine Color Yellow; Urine Glucose Negative (Negative); Urine Ketones Negative (Negative); Urine Nitrite Negative (Negative); Urine Protein Negative (Negative); Urine Specific Gravity 1.013 (1.010-1.030); Urine Urobilinogen Negative (Negative)
[2019-11-14] MEDS ORDERED: LORazepam TAB(*) 1 MG PO SCH (08:00)
[2019-11-14 08:02] LABS: Urine Benzodiazepine Screen None Detected (None Detect); Urine Opiates Screen None Detected (None Detect)
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
[2019-11-14] MEDS ORDERED: NS 0.9% 1000 ML** 1,000 ML IV ONE (09:14)
[2019-11-14 09:17] LABS: BUN/Creatinine Ratio 13.3 (8-20); Calcium 8.5 mg/dL (8.6-10.3); EGFR African American 140.2 (>60); EGFR Non-African American 115.9 (>60); Potassium 3.5 mmol/L (3.5-5.0)
[2019-11-14] MEDS ORDERED: Albuterol HFA INHALER* 8 gm MDI INH PRN (09:17)
[2019-11-14] MEDS: LORazepam TAB(*) 1 MG PO SCH ×2 (09:29→17:00)
[2019-11-14] MEDS: Thiamine TAB* 100 MG TAB PO SCH (11:53)
[2019-11-14] MEDS: Multivitamins/Minerals TAB PO SCH (11:53)
[2019-11-14] MEDS: Folic Acid TAB* 1 MG PO SCH (11:53)
--- NOTE | 2019-11-14 12:47 | CONSULT ---
Consult Consult: Psychiatry attempted to examine Fazal in her room on the [facility] unit. She is minimally responsive and not able to answer questions at this time. The case has been referred to my colleague, Dr. Sav Moore ([phone]) to see tomorrow ().
[2019-11-14] MEDS: NS 0.9% 1000 ML** 1,000 ML IV SCH (17:01)
[2019-11-15] MEDS: LORazepam TAB(*) 1 MG PO SCH ×2 (00:28→11:59)
[2019-11-15] MEDS: NS 0.9% 1000 ML** 1,000 ML IV SCH ×2 (01:21→08:08)
[2019-11-15] MEDS: Multivitamins/Minerals TAB PO SCH (08:52)
[2019-11-15] MEDS: Thiamine TAB* 100 MG TAB PO SCH (08:52)
[2019-11-15] MEDS: Folic Acid TAB* 1 MG PO SCH (08:52)
[2019-11-15 13:42] VITALS: BP 116/77
[2019-11-15 13:47] LABS: BUN/Creatinine Ratio 10.6 (8-20); Calcium 8.8 mg/dL (8.6-10.3); EGFR African American 125.6 (>60); EGFR Non-African American 103.8 (>60); Potassium 3.6 mmol/L (3.5-5.0)
[2019-11-15] MEDS ORDERED: Naltrexone INJ 380 MG IM ONE (15:00)
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
--- NOTE | 2019-11-15 16:37 | DS ---
CC: Dr. Leone* DISCHARGE SUMMARY: DATE OF ADMISSION: 11/14/19 DATE OF DISCHARGE: 11/15/19 PRIMARY CARE PHYSICIAN: Dr. Leone. PRINCIPAL DISCHARGE DIAGNOSIS: Seroquel overdose. SECONDARY DISCHARGE DIAGNOSES: 1. Pacific chorea. 2. Posttraumatic stress disorder. 3. Depression. 4. Raynaud phenomenon. 5. Peptic ulcer disease. MEDICATIONS: For discharge: 1. Albuterol 2 puffs q.6 p.r.n. wheezing. 2. Nifedipine 30 mg daily. 3. Sertraline 100 mg daily. 4. Naltrexone 50 mg daily. 5. Gabapentin 600 mg t.i.d. 6. Please note that she is receiving a Vivitrol injection on the day of discharge as per her request and ordered by Dr. Moore. PHYSICAL EXAMINATION AT DISCHARGE: Temp 98.5, heart rate 66, respiratory rate 16, pulse ox 100% on room air, blood pressure 116/77. General: Alert, well- appearing young woman, resting comfortably, who is pleasant with good insight and appropriate interaction. HEENT: Pupils equal, round, reactive to light. Oral mucosa is moist. Neck: No JVP. No adenopathy. Chest: Regular rate and rhythm. No murmurs. Abdomen: Soft, nontender, nondistended. No CVA tenderness. Extremities: No edema, rashes, or ulcers. Neurologic: Strength is 5/5 in all extremities. Gait is normal. Psych: She is calm, appropriate, and has been pleasant and cooperative with myself and the staff. CONSULTATION DURING THIS ADMISSION: Dr. Sav Moore from Psychiatry. DIAGNOSTIC STUDIES: QTc at the time of discharge is 450. HOSPITAL COURSE BY PROBLEM: 1. Seroquel overdose. Ms. Levine was brought into the emergency department with an accidental Seroquel overdose. She had been mourning the anniversary of her ex- fiance's and wanted to sleep the day away, so she took extra Seroquel in combination with alcohol. She had no intent of suicide. The story has been consistent with me and with the psychiatrist. She has expressed no suicidal thoughts or plans throughout this hospitalization and is motivated to go home and continue to get help. She has accountability in her brother, Fermín who she will go to live with and Dr. Moore has obtained collateral from Fermín as well. She will have not access to alcohol there. I am discontinuing her Seroquel as she says it has not been helpful to her for sleep in the past anyway. She continues to deny any thoughts or desires of self harm and is motivated to continue to follow up with her psychiatrist, her therapist and to stay sober. She had no events on telemetry. Her EKG has remained unremarkable and she is being discharged to home with close followup. 2. Pacific's chorea. She follows with [facility] and is hopeful about a new treatment there proposing. 3. Disposition. Ms. Levine is being discharged to her brother's house with a plan to follow up with her PCP and her psychiatrist. CONDITION AT THE TIME OF DISCHARGE: Stable. [id number]/[facility] #: [id number] MTDD
== END 2019-11-15 23:28 | disposition home or self-care (01) ==
LOC: ED 18:18 → MEDTELE 11-14 07:29
PROVIDERS: ADMIT Internal Medicine; ATTEND Internal Medicine
DX: T43.591A Poisoning by other antipsychotics and neuroleptics, accidental (unintentional), initial encounter (principal); Y92.9 Unspecified place or not applicable; G10 Huntington's disease; I73.00 Raynaud's syndrome without gangrene; K27.9 Peptic ulcer, site unspecified, unspecified as acute or chronic, without hemorrhage or perforation; F17.210 Nicotine dependence, cigarettes, uncomplicated; K21.9 Gastro-esophageal reflux disease without esophagitis; F31.9 Bipolar disorder, unspecified; Z79.899 Other long term (current) drug therapy; Z88.8 Allergy status to other drugs, medicaments and biological substances; R94.31 Abnormal electrocardiogram [ECG] [EKG]
CPT/HCPCS: 36415; 80048; 80053; 80307; 80320; 80329; 81003; 82140; 82550; 82803; 83605; 84702; 85025; 93005; 96361; 96372; 96374; 99285; A9270-GY; G0378; G0480; J1200; J1630; J2060; J3411